=== PATIENT | female | born 1985 | race Caucasian/White ===

== ENCOUNTER 2023-08-12 09:16 | Outpatient (CLI) | payer OTHER, SELFPAY ==
--- NOTE | ~2023-08-12 | MMUS_ITS ---
EXAMINATION: MM diagnostic zohaib BI w juan m, US breast LT limited HISTORY: Palpable left breast abnormality TECHNIQUE: Additional 3-D tomosynthesis images of the left breast were performed and synthetic 2-D im ages were generated. CAD analysis was submitted and interpreted. High resolution Limited left breast ultrasound was performed. COMPARISON: No prior studies for comparison. BREAST PARENCHYMAL COMPOSITION: Not dense: There are scattered areas of fibroglandular density. FINDINGS: MAMMOGRAPHIC FINDINGS: There is no mammographic evidence for malignancy in the right breast. There is a small mass in the lo wer inner quadrant of the left breast corresponding to the area of palpable concern in. There are no suspicious calcifications or architectural distortion. ULTRASOUND: Limited left breast ultrasound: At 9:00, 7 cm from the nipple there is a slightly irregular shaped 5 mm hypoechoic mass with parallel orientation, no posterior features and no internal vascularity. This corresponds to the mammographic finding. IMPRESSION: 1. Left breast mass located at 9:00, 7 cm from the nipple measuring 5 mm. 2. Ultrasound-guided left breast biopsy recommended. BI-RADS category 4, suspicious findings. Reviewed, dictated and finalized at location A. IMPRESSION: 1. Left breast mass located at 9:00, 7 cm from the nipple measuring 5 mm. 2. Ultrasound-guided left breast biopsy recommended. BI-RADS category 4, suspicious findings.
== END 2023-08-12 09:17 ==
LOC: MICIMG 09:18
PROVIDERS: PCP Nurse Practitioner; Visit Provider Nurse Practitioner
DX: N63.25 Unspecified lump in the left breast, overlapping quadrants (principal)
CPT/HCPCS: 76642; 77062; 77066; G0279